=== PATIENT | female | born 1935 | race Caucasian/White ===

== ENCOUNTER 2020-05-06 06:34 | Day surgery (SDC) | payer OTHER ==
[2020-05-06] MEDS ORDERED: NA CHLORIDE 0.9% 1,000 ML ONE (07:07)
[2020-05-06] MEDS: LIDOCAINE 1% W/EPI 1:100,000 MDV 20 ML VIAL ONE ×2 (07:17→08:05)
[2020-05-06] MEDS ORDERED: Ringers Lactate 1,000 ML IV ONE (07:25)
[2020-05-06] MEDS ORDERED: LIDOCAINE 2% MPF 5 ML VIAL ONE (07:43)
[2020-05-06] MEDS ORDERED: FENTANYL CITR 100 MCG/2 ML ONE (07:43)
[2020-05-06] MEDS ORDERED: propofoL 200 MG/20 ML VIAL IV ONE (07:43)
[2020-05-06 08:58] VITALS: BP 120/51; TEMP 97.9; O2SAT 93
--- NOTE | 2020-05-07 04:35 | OP ---
Date of Procedure: 05/06/2020 Surgeon: mEily Cowan MD Preoperative Diagnosis: Postmenopausal bleeding. Postoperative Diagnosis: Postmenopausal bleeding. Procedures Performed: Hysteroscopy, dilation and curettage. Anesthesia: MAC plus paracervical block. Specimens: Endometrial curettings. Complications: No complications. Drains: No drains. Condition: Stable. Indication For Procedure: 84-year-old lady with postmenopausal bleeding. Transvaginal ultrasound wa s done. The lining thickness was 6 mm. Needed endometrial sampling to rule out pathology. She was then consented and taken to the hospital. Although no cardiac clearance was done, patient was comple tely asymptomatic and after discussion with Anesthesia, decided to proceed with MAC and not a general with a local block and so we were able to proceed without any further investigations. Description Of Procedure: After informed consent was verified, she was taken back to OR, placed in s upine fashion on the operating table. MAC was given, placed in a dorsal lithotomy position. Pelvic exam performed. Prepped with Betadine x3. Speculum placed in the vagina to expose the cervix. Ante rior lip injected with 1% lidocaine mixed with 1:100,000 epinephrine, 5 cc was given. Anterior lip g rasped with an Allis clamp. Small polypoid area on the external os was seen. Injection at 4 and 8 o 'clock positions with another 6 cc of the same solution was given with a needle. Then, SlimLine diag nostic hysteroscope was used to enter the cervical canal and traverse through it into the uterine cav ity under direct vision. Slight distortion in the canal, but I was able to follow it into the uterin e cavity without any problems. 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 Endometrial t issue was floating around in the hysteroscopic fluid. Endometrium appeared to be slightly thickened, but no gross tumor was seen. Both tubal ostia were well visualized. Scope was removed. Endometria l curettings were performed after dilating to a 14-Hungarian with a 0 curette. After adequate sampling was performed, this was handed off for permanent pathology. Instruments were removed. Instrument, n eedle, and sponge counts were correct at the end of the case. The patient was recovered from anesthe francois and taken to the PACU in a stable condition. EBL was minimal. No complications were noted and s he has recovered well without any problems. She will see us back in 1 week. JOON Voice ID: [id number] Report ID: [id number]
== END 2020-05-06 09:25 | disposition home or self-care (01) ==
LOC: OR 06:34
PROVIDERS: ATTEND Obstetrics & Gynecology
PROC: 0UJD8ZZ Inspection of Uterus and Cervix, Via Natural or Artificial Opening Endoscopic (ICD-10-PCS; 2020-05-06)
PROC: 0UDB7ZX Extraction of Endometrium, Via Natural or Artificial Opening, Diagnostic (ICD-10-PCS; principal; 2020-05-06 07:30)
DX: N85.02 Endometrial intraepithelial neoplasia [EIN] (principal); N84.0 Polyp of corpus uteri; N95.2 Postmenopausal atrophic vaginitis; I12.9 Hypertensive chronic kidney disease with stage 1 through stage 4 chronic kidney disease, or unspecified chronic kidney disease; N18.9 Chronic kidney disease, unspecified; E78.00 Pure hypercholesterolemia, unspecified; E66.01 Morbid (severe) obesity due to excess calories; Z68.38 Body mass index [BMI] 38.0-38.9, adult; Z85.3 Personal history of malignant neoplasm of breast; Z80.9 Family history of malignant neoplasm, unspecified; Z82.49 Family history of ischemic heart disease and other diseases of the circulatory system
CPT/HCPCS: 58558; 88305; J2704; J3010; J7120; J7030

== ENCOUNTER 2023-07-13 09:00 | Day surgery (SDC) | payer OTHER ==
--- NOTE | 2023-07-05 11:32 | RAD REPORT ---
EXAM DESCRIPTION: RAD - Chest Pa And Lat (2 Views) - 07/05/2023 11:15 am CLINICAL HISTORY: pre op. Hypertension COMPARISON: CHEST SINGLE VIEW dated 07/22/2012; CHEST PA AND LAT 2 VIEW dated 09/28/2005; CHEST PA AND LAT 2 VIEW dated 09/28/2005 TECHNIQUE: PA and lateral views of the chest were obtained. FINDINGS: The lungs are clear. Left basilar atelectatic changes and surgical clips near the left bas e are stable. Heart size is normal and central vasculature is within normal limits. No pleural effusi on or pneumothorax seen. No acute bony finding noted. IMPRESSION: No acute cardiopulmonary process.
[2023-07-05 11:46] LABS: Protime INR 1.17
[2023-07-05 11:52] LABS: Absolute Lymphocytes (CBC) 1.7 K/uL (0.7-4.9); Hematocrit 36.8 % (36.0-45.0); Lymphocytes % 22.5 % (15.3-44.8); MCV 87.5 fL (80-100); MPV 8.3 fL (7.6-11.3); Platelets 451 thou/uL (152-406)
--- NOTE | 2023-07-05 18:06 | EKG ---
Test Date: 2023-07-05 Test Time: 10:33:10 Linux Network Administrator: PETRA MEASUREMENT RESULTS: Intervals: Rate: 61 TX: 128 QRSD: 96 QT: 404 QTc: 406 [place]: P: TX: 128 QRS: -62 T: -56 INTERPRETIVE STATEMENTS: Normal sinus rhythm Left axis deviation Voltage criteria for left ventricular hypertrophy Inferior-posterior infarct, age undetermined Abnormal ECG Electronically Signed On 07-05-23 18:05:49 CDT by Calvin Yu
--- NOTE | 2023-07-06 14:13 | EKG ---
Test Date: 2023-07-05 Test Time: 10:34:30 Managing Consultant: PETRA MEASUREMENT RESULTS: Intervals: Rate: 60 VA: 48 QRSD: 96 QT: 404 QTc: 404 [place]: P: 45 VA: 48 QRS: -62 T: -51 INTERPRETIVE STATEMENTS: Sinus rhythm with short VA Left axis deviation Voltage criteria for left ventricular hypertrophy Inferior-posterior infarct, age undetermined Abnormal ECG Compared to ECG 07/05/2023 10:33:10 Short VA interval now present Electronically Signed On 07-06-23 14:11:15 CDT by Calvin Yu
[2023-07-13] MEDS ORDERED: VERAPAMIL HCL 10 MG/4 ML VIAL IV ONE (09:38)
[2023-07-13] MEDS ORDERED: CLOPIDOGREL 75 MG TABLET ONE (09:38)
[2023-07-13] MEDS ORDERED: HEPARIN 5000 UNIT/ML 1 ML VIAL ONE (09:38)
[2023-07-13] MEDS ORDERED: ASPIRIN 325 MG TAB ONE (09:38)
[2023-07-13] MEDS ORDERED: HEPA 1000U/500MLS 2,000 UNIT/1,000 ML BAG IV ONE (09:38)
[2023-07-13] MEDS ORDERED: MIDAZOLAM HCL 2 MG/2 ML INJ ONE (09:38)
[2023-07-13] MEDS ORDERED: LIDOCAINE 1% 20 ML MDV ONE (09:39)
[2023-07-13] MEDS ORDERED: NITROGLYCERIN 100 MCG/ML SYR (for cath lab use only) IV ONE (09:39)
[2023-07-13] MEDS ORDERED: TICAGRELOR 90 MG TABLET PO ONE (09:39)
[2023-07-13] MEDS ORDERED: ATROPINE SULF 1 MG/10 ML SYR IV ONE (09:39)
[2023-07-13] MEDS ORDERED: HEPARIN 10,000 UNIT/10 ML VIAL IV ONE (09:39)
[2023-07-13] MEDS ORDERED: FENTANYL CITR 100 MCG/2 ML ONE (09:39)
[2023-07-13] MEDS ORDERED: NA CHLORIDE 0.9% 500 ML ONE (10:23)
[2023-07-13 10:38] VITALS: TEMP 97.8
--- NOTE | 2023-07-13 12:36 | OP ---
Date of Procedure: 07/13/2023 Surgeon: MARIA DE JESUS MOORE Procedures Performed: 1.Selective coronary angiogram. 2.Left heart catheterization. Indication: Chest pain with abnormal stress test showing significant inferior ischemia. Access: Right radial artery 6-Stateless closed with TR band. Complications: None. Bleeding: Less than 20 mL. Anesthesia: Total sedation time was 20 minutes. Used Versed and fentanyl. Description Of Procedure: After risks, benefits, alternatives were explained, the patient agreed to the procedure and signed informed consent. Patient was brought into the cardiac catheterization [facility], prepped and draped in usual sterile fashion. Then, I accessed the right radial artery using pediatric micropuncture kit, placed 6-Stateless Slender sheath, took 5-Stateless [place] 4 catheter into the aortic root, engaged the left main, took standard views and then the RCA, took standard views and the catheter was pushed over the wire into the LV, measured the LVEDP and pullback did not record any gr adient. Then I removed the catheter and the sheath and placed TR band with good hemostasis. Findings: 1.Left main is normal. 2.LAD, normal with large size vessel with luminal irregularities, normal diagonal branches. 3.Left circumflex; proximal luminal irregularities and mid 30% stenosis. OM branch is normal. 4.RCA, it is large and dominant with a diffuse 10% to 20% stenosis. 5.Elevated LVEDP at between 10 and 12 mmHg, slightly elevated. Conclusion: Mild nonobstructive coronary artery disease. Plan: Medical management. /SUE Voice ID: [id number] Report ID: [id number]
[2023-07-13 14:00] VITALS: BP 159/62; O2SAT 96
== END 2023-07-13 13:30 | disposition home or self-care (01) ==
LOC: CCL 09:00
PROVIDERS: ATTEND Internal Medicine
DX: I25.10 Atherosclerotic heart disease of native coronary artery without angina pectoris (principal); I10 Essential (primary) hypertension; E78.5 Hyperlipidemia, unspecified; Z79.82 Long term (current) use of aspirin; Z79.899 Other long term (current) drug therapy
CPT/HCPCS: 36415; 71046; 76937; 80048; 85025; 85610; 85730; 93005; 93458; C1893; J0461; J1644; J2001; J2250; J3010; J7040; Q9966

== ENCOUNTER 2024-10-17 07:45 | Emergency (ER) | payer OTHER ==
--- OUTSIDE RECORDS SUMMARY | 2024-10-17 07:48 | XMS REPORT | Continuity of Care Document ---
Author Name Unknown Address [address] [facility] [address] [facility] [address] [place] [address] [facility] Address [address] [place] [address] Care Team Providers Care Cafe Attendant Name Role Phone Oj Earl Primary Care Physician [phone] SYSTEM, PROVIDER NOT IN Attending Clinician Unav DENISE Rivas Attending Clinician Unavaila MIKE Ruiz Attending Clinician UnavailHEATHER Campos Attending Clinician Unavaila MIAN Landa Attending Clinician Unavailable MINNIE SHABAZZ Attending Clinician Unavailable Ammy Dawson APRN Attending Clinician Catalino Jensen MD Attending Clinician [phone] VENECIA AYALA Attending Clinician Unavailable [email or web address]_S Attending Clinician UnavailVIRGEN Plascencia Attending Clinician Unavailable MEME WALLACE Attending Clinician Unavailable JAGDISH RASMUSSEN Attending Clinician Unavailable JEAN-PIERRE OROZCO Attending Clinician Unavailable [email or web address]_S Admitting Clinician UnavailVENECIA Damon Admitting Clinician Unavailable Payers Payer Name Policy Type Policy Number Effective Date Expirati on Date Source MEDICARE PART A AND B [id number] 2002 00:00:00 [facility] [id number] 2015 00:00:00 2016 00:00:00 MEDICARE PART A AND B [id number] 2002 00:00:00 Problems Condition Name Condition Details Condition Category Status Onset Date Resolution Date Last Treatment Date Treating Clinician Comments Source Status post right knee replacemen t Status post right knee replacemen t Disease Active 9-22 00:00: 00 [facility] Aftercare following right knee joint replacemen t surgery Aftercare following right knee joint replacemen t surgery Disease Active 4-08 00:00: 00 Last Assessmen t & Plan: Formattin g of this note might be different from the original. Continue PT for strengthe maral and balance. [facility] Osteoarthr itis Osteoarthr itis Disease Active 2-02 00:00: 00 [facility] Bilateral leg edema Bilateral leg edema Disease Active 2-02 00:00: 00 [facility] Primary osteoarthr itis of right knee Primary osteoarthr itis of right knee Disease Active 1-03 00:00: 00 Last Assessmen t & Plan: Formattin g of this note might be different from the original. Discussed with Ms. Meyers stacie chiu treatment options for osteoarth ritis. Treatment included pain medicatio n (NSAID's and topicals) , bracing, physical therapy, cortisone injection s, hyaluroni c acid, PRP, and stem cells.Enoch edwardsy risks, benefits, and alternati ves were discussed with the patient regarding operative intervent ion. Risks include but are not limited to pain, bleeding, scarring, infection , damage to nerves, arteries, veins, failure of procedure , possible loosening , migration , or hardware failure, possible choice of implants (Ellenburg, Simmons [employer]hew), possible painful or prominent hardware, joint stiffness , need for further procedure s, nonunion, malunion, dislocati on, loss of limb, heart attack, stroke and . Patient voiced understan ding and wished to proceed with operative intervent ions.Righ t TKA [facility] Malignant neoplasm of endometriu m Malignant neoplasm of endometriu m Disease Active 30 00:00: 00 [facility] Hyperlipid emia Hyperlipid emia Disease Active 05-25 00:00: 00 [facility] Hypertensi on Hypertensi on Disease Active 05-25 00:00: 00 [facility] Infiltrati ng ductal carcinoma of breast Infiltrati ng ductal carcinoma of breast Disease Active 5-15 00:00: 00 [facility] Social History Social Habit Start Date Stop Date Quantity Comments Source Sexual orientation [facility] Alcoholic beverage intake 2024-08-14 00:00:00 2024-08-14 00:00:00 Ex-drinker (finding) [facility] History of Social function 2024-05-15 00:00:00 2024-05-15 00:00:00 [facility] Tobacco use and exposure 2023-11-29 00:00:00 2023-11-29 00:00:00 Smokeless tobacco non-user [facility] Sex assigned at 1935 00:00:00 1935 00:00:00 [facility] Smoking Status Start Date Stop Date Source Never smoked tobacco [facility] Medications Ordered Medication Name Filled Medication Name Start Date Stop Date Current Medication? Ordering Clinician Indication Dosage Frequency Signature (SIG) Comments Components Source HYDROcodone -acetaminop hen ([place]) 7.5-325 MG tablet 02-21 00:00: 00 Yes [id number] 1{tbl} Take 1 tablet by mouth every 4 (four) hours if needed for severe pain. [facility] celecoxib (CeleBREX) 100 MG capsule 02-21 00:00: 00 03-24 04:59 :00 No [id number] 9100 100mg QD Take 1 capsule (100 mg total) by mouth 1 (one) time each day. [facility] gabapentin (Neurontin) 300 MG capsule 02-21 00:00: 00 03-24 04:59 :00 No [id number] 9100 300mg Take 1 capsule (300 mg total) by mouth every night. [facility] atorvastati n (Lipitor) 20 MG tablet 02-19 13:28: 22 Yes 20mg Take 20 mg by mouth. [facility] aspirin 81 MG EC tablet 02-19 13:28: 22 Yes 81mg Take 81 mg by mouth. [facility] Diclofenac Sodium (Voltaren) 1 % external gel 02-19 13:28: 22 Yes 1g Q.5D Apply 1 g topically in the morning and 1 g in the evening. [facility] [id number]-O julieth 3-Phytoster ols (BP VIT 3 PO) 02-19 13:28: 22 Yes Take by mouth. [facility] losartan-hy droCHLOROth iazide (Hyzaar) 100-25 MG tablet 02-19 13:28: 22 Yes 1{tbl} QD Take 1 tablet by mouth 1 (one) time each day. [facility] carvedilol (Coreg) 25 MG tablet 02-19 13:28: 22 Yes 25mg Take 25 mg by mouth in the morning and 25 mg in the evening. Take with meals. [facility] Ascorbic Acid (vitamin C) 1000 MG tablet 02-19 13:28: 22 Yes 1000mg QD Take 1,000 mg by mouth 1 (one) time each day. [facility] celecoxib (CeleBREX) 200 MG capsule 02-19 00:00: 00 Yes [id number] TAKE BID THE DAY BEFORE SX, AND 1 THE AM OF SX [facility] Ascorbic Acid (vitamin C) 1000 MG tablet 01-16 13:11: 51 Yes 1000mg QD Take 1,000 mg by mouth 1 (one) time each day. [facility] atorvastati n (Lipitor) 20 MG tablet 01-16 13:11: 51 Yes 20mg Take 20 mg by mouth. [facility] aspirin 81 MG EC tablet 01-16 13:11: 51 Yes 81mg Take 81 mg by mouth. [facility] Diclofenac Sodium (Voltaren) 1 % external gel 01-16 13:11: 51 Yes 1g Q.5D Apply 1 g topically in the morning and 1 g in the evening. [facility] Multiple Vitamins-Mi nerals (ICAPS AREDS 2 PO) 01-16 13:11: 51 Yes Take by mouth. [facility] losartan-hy droCHLOROth iazide (Hyzaar) 100-25 MG tablet 01-16 13:11: 51 Yes 1{tbl} QD Take 1 tablet by mouth 1 (one) time each day. [facility] carvedilol (Coreg) 25 MG tablet 01-16 13:11: 51 Yes 25mg Take 25 mg by mouth in the morning and 25 mg in the evening. Take with meals. [facility] atorvastati n (Lipitor) 20 MG tablet 12-29 17:49: 16 Yes 20mg Take 20 mg by mouth. [facility] aspirin 81 MG EC tablet 12-29 17:49: 16 Yes 81mg Take 81 mg by mouth. [facility] Vital Signs Vital Name Observation Time Observation Value Comments S ource Body height 2024-08-14 17:08:00 152.4 cm [facility] Body weight 2024-08-14 17:08:00 81.647 kg [facility] BMI 2024-08-14 17:08:00 35.15 kg/m2 [facility] Body height 2024-05-15 15:57:00 152.4 cm [facility] Body weight 2024-05-15 15:57:00 83.915 kg [facility] BMI 2024-05-15 15:57:00 36.13 kg/m2 [facility] Body height 2024-04-09 13:43:00 152.4 cm [facility] Body weight 2024-04-09 13:43:00 85.73 kg [facility] BMI 2024-04-09 13:43:00 36.91 kg/m2 [facility] Body weight 2024-03-15 14:59:00 85.73 kg [facility] BMI 2024-03-15 14:59:00 36.91 kg/m2 [facility] Body height 2024-03-15 14:59:00 152.4 cm [facility] Body height 2024-02-20 18:28:00 152.4 cm [facility] Body weight 2024-02-20 18:28:00 85.73 kg [facility] BMI 2024-02-20 18:28:00 36.91 kg/m2 [facility] Body height 2024-01-16 19:04:00 152.4 cm [facility] Body weight 2024-01-16 19:04:00 86.183 kg [facility] BMI 2024-01-16 19:04:00 37.11 kg/m2 [facility] Body height 2023-11-29 16:09:00 152.4 cm [facility] Body weight 2023-11-29 16:09:00 86.183 [facility] BMI 2023-11-29 16:09:00 37.11 kg/m2 [facility] WEIGHT 2020-06-08 09:21:00 86 kg Encounters Start Date/Time End Date/Time Encounter Type Admission Type Attending [facility] Facility Care Department Encounter ID Source 2023-06-29 09:17:51 Outpatient SYSTEM, PROVIDER MDA MDA [id number] MD Kaleigh hanson 2023-05-06 16:04:57 Outpatient SYSTEM, PROVIDER MDA MDA [id number] MD Kaleigh hanson 2020-06-15 15:04:43 Outpatient SYSTEM, PROVIDER MDA MDA [id number] MD Kaleigh hanson 2020-06-09 12:06:00 Outpatient MDA MDA [id number] MD Kaleigh hanson 2020-06-09 07:12:09 Outpatient OJELADENISE CHAVEZ MDA MDA [id number] MD Kaleigh hanson 2020-06-09 07:12:09 Outpatient ODENISE HILL MDA MDA [id number] MD Kaleigh hanson 2020-06-08 10:33:45 Outpatient MIKE PETER MDA MDA [id number] MD Kaleigh hanson 2020-06-05 10:55:31 Outpatient MDA MDA [id number] MD Kaleigh hanson 2020-05-22 11:50:50 Outpatient SYSTEM, PROVIDER MDA MDA [id number] MD Kaleigh hanson 2025-02-11 11:15:00 2025-02-11 11:15:00 Outpatient HEATHER ALANIZ [facility] [id number] [facility] 2024-08-14 11:15:00 2024-08-14 12:59:46 Outpatient [facility] [id number] [facility] 2024-08-14 11:15:00 2024-08-14 12:59:30 Office Visit Heather Alaniz [facility] [id number] [id number] [facility] 2024-05-15 13:00:00 2024-05-15 13:00:00 Outpatient HEATHER ALANIZ [facility] [id number] [facility] 2024-05-15 11:00:00 2024-05-15 11:56:29 Outpatient [facility] [id number] [facility] 2024-05-15 11:00:00 2024-05-15 11:56:23 Office Visit [facility] [id number] [id number] [id number] [facility] 2024-05-13 08:12:44 2024-05-13 09:07:40 Outpatient MIAN KERR MDA MDA [id number] MD Kaleigh hanson 2024-04-10 11:00:00 2024-04-10 11:00:00 Outpatient HEATHER ALANIZ [facility] [id number] [facility] 2024-04-09 11:00:00 2024-04-09 12:22:01 Outpatient [facility] [id number] [facility] 2024-04-09 11:00:00 2024-04-09 12:21:53 Office Visit Heather Alaniz [facility] [id number] [id number] [id number] [id number] [facility] 2024-04-01 11:02:03 2024-04-01 12:44:52 Outpatient SCOTT SHABAZZ SAIRA SILVER MDA [id number] MD Kaleigh hanson 2024-03-15 10:00:00 2024-03-15 10:40:53 Outpatient [facility] [id number] [facility] 2024-03-15 10:00:00 2024-03-15 10:40:44 Office Visit Ammy Dawson [facility] [id number] 350.1.13.58 9.2.7.2.686 [id number] [facility] 2024-03-15 10:15:00 2024-03-15 10:15:00 Outpatient AMMY DAWSON [facility] [id number] [facility] 2024-03-04 14:45:00 2024-03-04 14:45:00 Outpatient AMMY DAWSON [facility] [id number] [facility] 2024-03-04 14:30:00 2024-03-04 14:45:00 Telemedici ne Ammy Dawson [facility] [id number] 350.1.13.58 9.2.7.2.686 [id number] [facility] 2024-02-22 11:00:00 2024-02-22 11:00:00 Outpatient HEATHER ALANIZ [facility] [id number] [facility] 2024-02-22 08:00:00 2024-02-22 08:00:00 Outpatient HEATHER ALANIZ [facility] [id number] [facility] 2024-02-20 13:30:00 2024-02-20 14:06:24 Office Visit Heather Alaniz [facility] 1.2.840.114 350.1.13.58 9.2.7.2.686 [id number] [facility] 2024-01-16 13:00:00 2024-01-16 14:03:36 Office Visit Heather Alaniz [facility] 1.2.840.114 350.1.13.58 9.2.7.2.686 [id number] [facility] 2023-12-29 10:30:00 2023-12-29 11:53:01 Office Visit Catalino Jensen [facility] 1.2.840.114 350.1.13.58 9.2.7.2.686 [id number] [facility] 2023-11-29 10:00:00 2023-11-29 11:28:34 Outpatient [facility] [id number] [facility] 2023-11-29 10:00:00 2023-11-29 11:28:23 Office Visit mAmy Dawson [facility] 1.2.840.114 350.1.13.58 9.2.7.2.686 [id number] [facility] 2023-11-13 10:58:28 2023-11-13 11:58:40 Outpatient VENECIA COVARRUBIAS MDA MDA [id number] MD Kaleigh hanson 2023-09-26 00:00:00 2023-09-26 00:00:00 Outpatient GC_GCBZW_Ka diyala_S [facility] [id number] [facility] 2023-05-15 10:06:01 2023-05-15 11:10:43 Outpatient VENECIA COVARRUBIAS MDA MDA [id number] MD Kaleigh hanson 2023-03-30 11:10:03 2023-03-30 12:03:36 Outpatient MINNIE GARCIA MDA MDA [id number] MD Kaleigh hanson 2022-11-14 13:27:24 2022-11-14 13:27:24 Outpatient VENECIA COVARRUBIAS MDA MDA [id number] MD Kaleigh hanson 2022-11-14 10:14:28 2022-11-14 10:14:28 Outpatient ROBERT ROSENTHALNA MDA MDA [id number] MD Kaleigh hanson 2022-07-25 09:21:51 2022-07-25 10:43:31 Outpatient VENECIA COVARRUBIAS MDA MDA [id number] MD Kaleigh hanson 2022-03-21 09:35:48 2022-03-21 10:07:11 Outpatient VENECIA COVARRUBIAS MDA MDA [id number] MD Kaleigh hanson 2022-03-07 09:01:51 2022-03-07 09:01:51 Outpatient VENECIA COVARRUBIAS MDA MDA [id number] MD Kaleigh hanson 2021-11-08 08:48:15 2021-11-08 08:48:15 Outpatient VENECIA COVARRUBIAS MDA MDA [id number] MD Kaleigh hanson 2021-07-12 08:29:33 2021-07-12 08:29:33 Outpatient VENECIA COVARRUBIAS MDA MDA [id number] MD Kaleigh hanson 2021-07-09 07:48:37 2021-07-09 07:48:37 Outpatient MEME MAZARIEGOS MDA MDA [id number] MD Kaleigh hanson 2020-07-13 00:00:00 2020-07-13 00:00:00 Outpatient VENECIA COVARRUBIAS MDA MDA [id number] MD Kaleigh hanson 2020-07-13 00:00:00 2020-07-13 00:00:00 Outpatient JAGDISH BRAGA MDA MDA [id number] MD Kaleigh hanson 2020-06-22 11:27:31 2020-06-22 11:27:31 Outpatient VENECIA COVARRUBIAS MDA MDA [id number] MD Kaleigh hanson 2020-06-09 05:03:00 2020-06-09 18:25:00 Outpatient VENECIA COVARRUBIAS MDA Gynecology [id number] MD Kaleigh hanson 2020-06-08 08:18:09 2020-06-08 23:59:00 Outpatient EL VIRGEN VILLAR MDA MDA [id number] MD Kaleigh hanson 2020-06-08 12:55:18 2020-06-08 12:55:18 Outpatient VENECIA COVARRUBIAS MDA MDA [id number] MD Kaleigh hanson 2020-06-08 08:55:03 2020-06-08 10:23:45 Outpatient VENECIA COVARRUBIAS MDA MDA [id number] MD Kaleigh hanson 2020-06-08 07:28:28 2020-06-08 08:17:00 Outpatient EL ROBERT VILLARNA MDA MDA [id number] MD Kaleigh hanson 2020-06-08 00:00:00 2020-06-08 00:00:00 Outpatient EL JIAN VIRGEN MDA MDA [id number] MD Kaleigh hanson 2020-06-08 00:00:00 2020-06-08 00:00:00 Outpatient VENECIA COVARRUBIAS MDA MDA [id number] MD Kaleigh hanson 2020-06-07 11:01:00 2020-06-07 11:01:00 Outpatient EL UNVANDANA VIRGEN MDA MDA [id number] MD Kaleigh hanson 2020-06-01 10:01:36 2020-06-01 10:01:36 Outpatient EL UNVANDANA VIRGEN MDA MDA [id number] MD Kaleigh hanson 2020-05-26 07:51:05 2020-05-26 07:51:05 Outpatient EL UNVANDANA VIRGEN MDA MDA [id number] MD Kaleigh hanson 2020-05-25 10:06:52 2020-05-25 10:17:26 Outpatient VIRGEN ROSENTHAL SILVER SHEPPARD [id number] MD Kaleigh hanson 2020-05-25 08:06:26 2020-05-25 08:06:26 Outpatient VENECIA COVARRUBIAS SILVER SHEPPARD [id number] MD Kaleigh hanson 2020-05-25 07:59:27 2020-05-25 07:59:35 Outpatient SCOTT LUCYCHULA YOUNGREBECA SHEPPARD MDA [id number] MD Kaleigh hanson 2020-05-22 10:04:59 2020-05-22 10:04:59 Outpatient CHULA COVARRUBIASREBECA SHEPPARD MDA [id number] MD Kaleigh hanson 2020-05-21 16:01:00 2020-05-21 23:59:00 Outpatient JEAN-PIERRE LOPEZ SILVER SHEPPARD [id number] MD Kaleigh hanson Notes Date/Time Note Provider Source 2024-08-18 11:07:48 Associated Problem(s): Status post right knee replacement Discussed with Ms. Meyers about need for antibiotics before dental procedures, any signs of a skin infection, as well as any sign of a urinary tract infection or GI infection. she verbalized understanding. Continue with performing HEP and slowly increasing activity. [facility] 2024-05-15 11:49:18 Associated Problem(s): Aftercare following right knee joint replacement surgery Continue PT for strengthening and balance. [facility] 2024-04-09 12:18:28 Associated Problem(s): Aftercare following right knee joint replacement surgery Continue PT. [facility] 2024-03-17 16:59:02 Associated Problem(s): Aftercare following right knee joint replacement surgery The pola were removed. Incision was clean, dry and intact. Benzoin was applied and Steri-Strips were applied over the incision. Ms. Meyers was educated on signs of infection including increased pain, erythema, tenderness, and drainage. Ms. Meyers verbalized understanding and will notify us immediately if any of the symptoms are noticed. [facility] 2024-03-04 14:42:24 Associated Problem(s): Aftercare following right knee joint replacement surgery Patient will continue with physical therapy and follow-up in 2 weeks for x-ray, bandage removal, and possible staple removal. [facility] 2024-02-26 22:08:15 Associated Problem(s): Primary osteoarthritis of right knee Discussed with Ms. Meyers conservative treatment options for osteoarthritis. Treatment included pain medication (NSAID's and topicals), bracing, physical therapy, cortisone injections, hyaluronic acid, PRP, and stem cells. Surgery risks, benefits, and alternatives were discussed with the patient regarding operative intervention. Risks include but are not limited to pain, bleeding, scarring, infection, damage to nerves, arteries, veins, failure of procedure, possible loosening, migration, or hardware failure, possible choice of implants (Ellenburg, [employer]hew), possible painful or prominent hardware, joint stiffness, need for further procedures, nonunion, malunion, dislocation, loss of limb, heart attack, stroke and . Patient voiced understanding and wished to proceed with operative interventions. Right TKA [facility] 2024-01-21 19:57:21 Associated Problem(s): Primary osteoarthritis of right knee Discussed with Ms. Meyers conservative treatment options for osteoarthritis. Treatment included pain medication (NSAID's and topicals), bracing, physical therapy, cortisone injections, hyaluronic acid, PRP, and stem cells. She is debating whether the surgery might be too big of a surgery for her so she would like to try PT first. [employer] [facility] 2023-11-29 16:47:43 Associated Problem(s): Primary osteoarthritis of right knee Discussed with Ms. Meyers conservative treatment options for osteoarthritis. Treatment included pain medication (NSAID's and topicals), bracing, physical therapy, cortisone injections, hyaluronic acid, PRP, and stem cells. Patient is already done cortisone injections as well as BOWLES injections as well as physical therapy with another provider. Will go ahead and start the process to get her ready for total knee arthroplasty and have her follow-up with Dr. Avina in 6 weeks. [employer]ING CO[employer]IN[employer] [facility]
[2024-10-17 08:40] LABS: Absolute Eosinophils 0.4 K/uL (0-0.5); Absolute Lymphocytes (CBC) 2.3 K/uL (0.7-4.9); Absolute Neutrophil 5.6 K/uL (1.8-8.0); Basophils % 0.5 % (0-1.3); Eosinophils % 4.2 % (0-4.4); Hematocrit 36.6 % (36.0-45.0); Hemoglobin 12.2 g/dL (12.0-15.0); MCHC 33.3 g/dL (32.0-36.0); MCV 86.9 fL (80-100); MPV 8.5 fL (7.6-11.3); Monocytes % 10.3 % (3.3-12.3); Nucleated Red Blood Cells % 0.1 % (0-0); Platelets 814 thou/uL (152-406); RBC Red Blood Cell Count 4.22 M/uL (3.86-4.86); Red Cell Distribution Width 14.8 % (12.1-15.2)
[2024-10-17 08:53] LABS: Albumin 3.5 g/dL (3.4-5.0); Anion Gap 8.2 mEq/L (5.0-15.0); Bilirubin Direct 0.3 mg/dL (0-0.2); Bilirubin Indirect, Calculated 0.6 mg/dL (0.2-0.8); Bilirubin Total 0.9 mg/dL (0.2-1.0); Globulin 3.4 g/dL (2.3-3.5); Magnesium 2.5 mg/dL (1.6-2.4); Potassium 4.2 mEq/L (3.5-5.1); Protein, Total 6.9 g/dL (6.4-8.2); Troponin High Sensitivity 10.9 pg/mL (<58.9)
--- NOTE | 2024-10-17 08:55 | RAD REPORT ---
EXAM: CT Head Brain Wo Cont HISTORY: WEAKNESS COMPARISON: None TECHNIQUE: Multiple contiguous axial images were obtained for a CT of the brain without contrast. Sag ittal and coronal reformats were performed. One or more of the following dose reduction techniques were used: Automated exposure control, adjus tment of the mA and kV according to patient size, and iterative reconstruction. Unless otherwise specified, incidental findings do not require dedicated imaging follow-up. FINDINGS: No evidence of hydrocephalus, intracranial hemorrhage, or extra-axial fluid collection. Mild brain atrophy with mild periventricular and deep white matter chronic microvascular ischemic ch anges present. The calvarium is intact. The visualized paranasal sinuses and mastoid air cells are essentially clear . Asymmetric engorgement of the right superior ophthalmic vein. IMPRESSION: No evidence of acute intracranial abnormality. Mild burden of nonspecific deep white matter hypodensities, most suggestive of chronic small vessel i schemic changes. Asymmetric engorgement of the right superior ophthalmic vein, of uncertain etiology. Please correlate for symptoms related to the right orbit. Possible etiologies could include a dural cavernous fistula, venous thrombosis, or sequelae of traumatic hemorrhage or infection.
--- NOTE | 2024-10-17 09:20 | RAD REPORT ---
EXAMINATION: ONE VIEW CHEST XR CLINICAL INDICATION: Female, 89 years old.,weakness TECHNIQUE: Frontal chest projection is submitted. Examination is limited by patient positioning and t echnique. COMPARISON: 01/31/2024 FINDINGS: The lungs are well inflated and clear. No pneumothorax or sizable effusion. The heart is normal in s ize. Mediastinal contours are unremarkable. IMPRESSION: No acute intrathoracic abnormalities.
[2024-10-17 10:17] LABS: Specific Gravity 1.007 (1.005-1.030); Sqamous Epithelial <5 /HPF (None Seen); Urine Bacteria None Seen /HPF (<20); Urine Bilirubin NEGATIVE (Negative); Urine Blood Negative (Negative); Urine Clarity Turbid (Clear); Urine Color Colorless (Yellow); Urine Culture Reflex Order NOT NEEDED; Urine Glucose NEGATIVE (Negative); Urine Ketones NEGATIVE (Negative); Urine Micro Reflex YN NO BILL MICROSCOPIC; Urine Nitrite NEGATIVE (Negative); Urine Protein NEGATIVE (Negative); Urine RBC None Seen /HPF (None Seen); Urine Urobilinogen Normal (Normal); Urine WBC <5 /HPF (<5); Urine pH 5.5 (5.0-7.0)
--- NOTE | 2024-10-17 11:25 | RAD REPORT ---
EXAMINATION: CTV HEAD CLINICAL INDICATION: Female, [address] V[address]. Abnormality on CT brain TECHNIQUE: Axial CT images were obtained through the head after intravenous contrast utilizing venogr aphic protocol with 3D post-processing (maximum intensity projection images, volume rendered images and/or shaded surface rendered images). One or more of the following dose reduction techniques were used: Automated exposure control, adjustment of the mA and/or kV according to patient size, and/or iterative reconstruction. Unless otherwise specified, incidental findings do not require dedicated im aging follow-up. COMPARISON: Noncontrast head CT of the same day FINDINGS: Superior sagittal sinus: Patent Transverse and sigmoid sinuses: Patent. Incidentally noted small arachnoid granulation along the righ t transverse sinus. Straight sinus, inferior sagittal sinus, and paired internal cerebral veins: Patent Cavernous sinuses: Normal appearing early opacification, without asymmetric distention or suspicious lesions. Asymmetric distention of the right superior ophthalmic vein. The vein opacifies normally with some la minar flow laterally, but no evidence of thrombosis. No evidence of a suspicious mass at the orbital apex. 3D images confirm these findings. The visualized proximal ham[place] of Gomes vessels show no abnormality apart from mild atherosclerotic calcific plaque at the carotid siphons bilaterally, within limits of venographic technique. IMPRESSION: Essentially normal CT venogram of the head. Asymmetric distention of the right superior ophthalmic vein as above, without evidence of thrombosis or a discrete orbital apex mass. The asymmetry is probably of low clinical significance, could relate to remote sequelae of infection or trauma.
--- NOTE | 2024-10-17 11:33 | EDPHYS ---
Physician Documentation [facility] Name: Christine Meyers Age: 89 yrs Sex: Female : 1935 Arrival Date: 10/17/2024 Time: 07:45 Bed 4 Private MD: ED Physician Amandeep Chang HPI: 10/17 08:22 This 89 yrs old Female presents to ER via Ambulatory with complaints of weakness. rt 08:22 Patient presents to the ED with generalized weakness. Patient states that she felt a rt tightness throughout the entirety of her face but not on any other parts of the body starting about 30 minutes prior to arrival. Patient was well when she woke up this morning. Denies other acute complaints at this time, symptoms are moderate in severity, no other aggravating or alleviating factors.. Historical: - Allergies: 07:54 No Known Allergies; ph - Home Meds: 08:17 atorvastatin 20 mg oral tablet 1 tab every day at bedtime [Active]; carvedilol 25 mg ph oral tablet 1 tab 2 times per day [Active]; losartan-hydrochlorothiazide 100-25 mg oral tablet 1 tab daily [Active]; aspirin 81 mg Oral tablet,chewable 1 tab daily [Active]; amlodipine 10 mg tablet 1 tab daily [Active]; hydralazine 25 mg Oral tablet 1 tab 1-3 times per day PRN [Active]; Vitamin D Oral 1,000 unit daily [Active]; Osteo Bi-Flex 250-200 mg oral tablet once [Active]; - PMHx: 07:54 Hypertensive disorder; Hypercholesterolemia; ph 08:17 Cancer- Breast (L); ph - PSHx: 08:17 Total abdominal hysterectomy; ph - Immunization history:: Adult Immunizations unknown. - Infectious Disease History:: Denies. - Social history:: Smoking status: Patient denies any tobacco usage or history of. - Family history:: not pertinent. ROS: 08:22 Constitutional: Negative for fever, chills, and weight loss, Cardiovascular: Negative rt for chest pain, palpitations, and edema, Respiratory: Negative for shortness of breath, cough, wheezing, and pleuritic chest pain, Abdomen/GI: Negative for abdominal pain, nausea, vomiting, diarrhea, and constipation, MS/Extremity: Negative for injury and deformity, Skin: Negative for injury, rash, and discoloration, 08:22 Neuro: Positive for weakness, Negative for dizziness, Exam: 08:22 Constitutional: This is a well developed, well nourished patient who is awake, alert, rt and in no acute distress. Head/Face: Normocephalic, atraumatic. Chest/axilla: Normal chest wall appearance and motion. Nontender with no deformity. No lesions are appreciated. Cardiovascular: Regular rate and rhythm with a normal S1 and S2. No gallops, murmurs, or rubs. Normal PMI, no JVD. No pulse deficits. Respiratory: Lungs have equal breath sounds bilaterally, clear to auscultation and percussion. No rales, rhonchi or wheezes noted. No increased work of breathing, no retractions or nasal flaring. Abdomen/GI: Soft, non-tender, with normal bowel sounds. No distension or tympany. No guarding or rebound. No evidence of tenderness throughout. Skin: Warm, dry with normal turgor. Normal color with no rashes, no lesions, and no evidence of cellulitis. MS/ Extremity: Pulses equal, no cyanosis. Neurovascular intact. Full, normal range of motion. Neuro: Awake and alert, GCS 15, oriented to person, place, time, and situation. Cranial nerves II-XII grossly intact. Motor strength 5/5 in all extremities. Sensory grossly intact. Cerebellar exam normal. Normal gait. 08:22 ECG was reviewed by the Attending Physician. Vital Signs: 07:52 BP 163 / 52; Pulse 57; Resp 18; Temp 97.8; Pulse Ox 100% on R/A; Weight 81.65 kg; ph Height 5 ft. 0 in. ; Pain 0/10; 08:13 BP 147 / 62; Pulse 61; Resp 18; Pulse Ox 100% on R/A; ph 09:15 BP 152 / 68; Pulse 64; Resp 18; Pulse Ox 98% on R/A; ph 10:30 BP 162 / 70; Pulse 62; Resp 18; Pulse Ox 99% on R/A; ph 10:30 BP 158 / 64; Pulse 60; Resp 18; Temp 97.5; Pulse Ox 100% on R/A; ph 07:52 Body Mass Index 35.15 (81.65 kg, 152.4 cm) ph 07:52 Pain Scale: Adult ph MDM: 07:47 Medical Screening Exam initiated rt 11:33 Differential Diagnosis Weakness, cavernous sinus thrombosis, electrolyte disturbance. rt Data reviewed: vital signs, nurses notes, lab test result(s), EKG, radiologic studies. Consideration of Admission/Observation Escalation of care including admission/observation considered. Symptoms improving throughout her stay in the emergency department, stable vital signs, labs unremarkable save for mildly elevated creatinine not any criteria for acute kidney injury. This was discussed with the patient. Workup did not reveal sinus fistula or cavernous sinus thrombosis. Comfortable with outpatient care, to return precautions discussed.. Discussion of test interpretation with radiology: I had a discussion with radiology regarding a test interpretation. Discussed findings with radiologist, states that CT venogram will be best rule out for cavernous sinus thrombosis.. Care significantly affected by the following chronic conditions: Hypertension. Counseling: I had a detailed discussion with the patient and/or guardian regarding the historical points, exam findings, and any diagnostic results supporting the discharge/admit diagnosis, lab results, radiology results, the need for outpatient follow up, to return to the emergency department if symptoms worsen or persist or if there are any questions or concerns that arise at home. Response to treatment: the patient's symptoms have markedly improved after treatment. 10/17 07:48 Order name: Basic Metabolic Panel; Complete Time: 08:55 rt 10/17 07:48 Order name: CBC with Diff; Complete Time: 08:49 rt 10/17 07:48 Order name: LFT's; Complete Time: 08:55 rt 10/17 07:48 Order name: Magnesium; Complete Time: 08:55 rt 10/17 07:48 Order name: Troponin HS; Complete Time: 08:55 rt 10/17 07:48 Order name: UAM; Complete Time: 10:20 rt 10/17 07:48 Order name: XRAY Chest (1 view); Complete Time: 09:22 rt 10/17 07:48 Order name: CT Head Brain wo Cont; Complete Time: 09:22 rt 10/17 10:05 Order name: CT Head Brain w Cont; Complete Time: 11:26 rt 10/17 07:48 Order name: EKG; Complete Time: 07:49 rt 10/17 07:48 Order name: Cardiac monitoring; Complete Time: 07:57 rt 10/17 07:48 Order name: EKG - Nurse/Tech; Complete Time: 07:57 rt 10/17 07:48 Order name: IV Saline Lock; Complete Time: 08:12 rt 10/17 07:48 Order name: Labs collected and sent; Complete Time: 08:13 rt 10/17 07:48 Order name: O2 Per Protocol; Complete Time: 07:58 rt 10/17 07:48 Order name: O2 Sat Monitoring; Complete Time: 07:57 rt EC:22 Rate is 58 beats/min. Rhythm is regular, Sinus bradycardia with No ectopy. Left axis rt deviation noted. NE interval is prolonged at 128 msec. QRS interval is normal. QT interval is normal. No Q waves. No ST changes noted. Interpreted by me. Administered Medications: No medications were administered Disposition Summary: 10/17/24 11:32 Discharge Ordered Notes: Location: Home rt Problem: new rt Symptoms: have improved rt Condition: Stable rt Diagnosis - Weakness rt Followup: rt - With: Private Physician - When: 2 - 3 days - Reason: Discharge Instructions: - Discharge Summary Sheet rt - Weakness rt Forms: - Medication Reconciliation Form rt - Antibiotic Education rt - Prescription Opioid Use rt - Patient Portal Instructions rt - Leadership Thank You Letter rt Signatures: Dispatcher [employer] Linda Winters RN RN ph Amandeep Chang MD MD rt Corrections: (The following items were deleted from the chart) 07:49 07:49 BASIC METABOLIC PANEL+C.LAB.BRZ ordered. EDMS EDMS 07:49 07:49 CBC+H.LAB.BRZ ordered. EDMS EDMS 07:49 07:49 HEPATIC FUNCTION+C.LAB.BRZ ordered. EDMS EDMS 07:49 07:49 MAGNESIUM+C.LAB.BRZ ordered. EDMS EDMS 07:49 07:49 Troponin High Sensitivity+C.LAB.BRZ ordered. EDMS EDMS 07:49 07:49 Urinalysis W/Microscopic+U.LAB.BRZ ordered. EDMS EDMS 07:49 07:49 Head Brain Wo Cont+CT.RAD.BRZ ordered. EDMS EDMS
--- NOTE | 2024-10-17 11:33 | ER ---
Nurse's Notes [facility] Name: Christine Meyers Age: 89 yrs Sex: Female : 1935 Arrival Date: 10/17/2024 Time: 07:45 Bed 4 Private MD: Diagnosis: Weakness Presentation: 10/17 07:52 Chief complaint: Patient states: Generalized weakness that started this morning, denies ph pain, numbness or tingling. Coronavirus screen: Vaccine status: Patient reports receiving the 2nd dose of the covid vaccine. Ebola Screen: No symptoms or risks identified at this time. Initial Sepsis Screen: Does the patient meet any 2 criteria? No. Patient's initial sepsis screen is negative. Initial Sepsis Screen: Does the patient have a suspected source of infection? No. Patient's initial sepsis screen is negative. Risk Assessment: Do you want to hurt yourself or someone else? Patient reports no desire to harm self or others. Onset of symptoms was October 17, 2024. 07:52 Method Of Arrival: Ambulatory ph 07:52 Acuity: ALVIN 3 ph Triage Assessment: 07:54 General: Appears in no apparent distress. comfortable, well groomed, Behavior is calm, ph cooperative, appropriate for age. Pain: Denies pain. Neuro: Level of Consciousness is awake, alert, obeys commands, Oriented to person, place, time, situation, Pharmacy Teacher are equal bilaterally Moves all extremities. Full function Speech is normal, Facial symmetry appears normal, Facial symmetry: tongue is midline, Pupils are PERRLA, Intact Reports weakness. Cardiovascular: Reports fatigue, lightheadedness. Respiratory: Airway is patent Respiratory effort is even, unlabored. GI: No signs and/or symptoms were reported involving the gastrointestinal system. Derm: Skin is pink, warm \T\ dry. Musculoskeletal: Circulation, motion, and sensation intact. Range of motion: intact in all extremities. Historical: - Allergies: 07:54 No Known Allergies; ph - Home Meds: 08:17 atorvastatin 20 mg oral tablet 1 tab every day at bedtime [Active]; carvedilol 25 mg ph oral tablet 1 tab 2 times per day [Active]; losartan-hydrochlorothiazide 100-25 mg oral tablet 1 tab daily [Active]; aspirin 81 mg Oral tablet,chewable 1 tab daily [Active]; amlodipine 10 mg tablet 1 tab daily [Active]; hydralazine 25 mg Oral tablet 1 tab 1-3 times per day PRN [Active]; Vitamin D Oral 1,000 unit daily [Active]; Osteo Bi-Flex 250-200 mg oral tablet once [Active]; - PMHx: 07:54 Hypertensive disorder; Hypercholesterolemia; ph 08:17 Cancer- Breast (L); ph - PSHx: 08:17 Total abdominal hysterectomy; ph - Immunization history:: Adult Immunizations unknown. - Infectious Disease History:: Denies. - Social history:: Smoking status: Patient denies any tobacco usage or history of. - Family history:: not pertinent. Screenin:56 [facility] ED Fall Risk Assessment (Adult) History of falling in the last 3 months, ph including since admission No falls in past 3 months (0 pts) Confusion or Disorientation No (0 pts) Intoxicated or Sedated No (0 pts) Impaired Gait No (0 pts) Mobility Assist Device Used No (0 pt) Altered Elimination No (0 pt) Score/Fall Risk Level 0 - 2 = Low Risk Oriented to surroundings, Maintained a safe environment, Hourly rounding (assess needs \T\ fall precautionary measures) done. Abuse screen: Denies threats or abuse. Denies injuries from another. Nutritional screening: No deficits noted. Tuberculosis screening: No symptoms or risk factors identified. Assessment: 07:57 General: SEE TRIAGE ASSESSMENT. ph 10:09 Reassessment: Patient appears in no apparent distress at this time. Patient and/or ph family updated on plan of care and expected duration. Pain level reassessed. Patient is alert, oriented x 3, equal unlabored respirations, skin warm/dry/pink. 11:53 Reassessment: Patient appears in no apparent distress at this time. Patient and/or ph family updated on plan of care and expected duration. Pain level reassessed. Patient is alert, oriented x 3, equal unlabored respirations, skin warm/dry/pink. Vital Signs: 07:52 BP 163 / 52; Pulse 57; Resp 18; Temp 97.8; Pulse Ox 100% on R/A; Weight 81.65 kg; ph Height 5 ft. 0 in. ; Pain 0/10; 08:13 BP 147 / 62; Pulse 61; Resp 18; Pulse Ox 100% on R/A; ph 09:15 BP 152 / 68; Pulse 64; Resp 18; Pulse Ox 98% on R/A; ph 10:30 BP 162 / 70; Pulse 62; Resp 18; Pulse Ox 99% on R/A; ph 10:30 BP 158 / 64; Pulse 60; Resp 18; Temp 97.5; Pulse Ox 100% on R/A; ph 07:52 Body Mass Index 35.15 (81.65 kg, 152.4 cm) ph 07:52 Pain Scale: Adult ph ED Course: 07:46 Patient arrived in ED. kb3 07:46 Amandeep Chang MD is Attending Physician. rt 07:52 Linda Allen, JOSIAH is Primary Nurse. ph 07:54 Triage completed. ph 07:56 Arm band placed on Patient placed in an exam room, on a stretcher, on court recording monitor, ph on pulse oximetry. 07:57 Patient has correct armband on for positive identification. Bed in low position. Call ph light in reach. Side rails up X 1. monitoring specialist on. Pulse ox on. NIBP on. Door closed. Noise minimized. Warm blanket given. 07:57 EKG done, by ED staff, reviewed by Amandeep Chang MD. ph 08:13 Troponin HS Sent. ph 08:13 Magnesium Sent. ph 08:13 LFT's Sent. ph 08:13 CBC with Diff Sent. ph 08:13 Basic Metabolic Panel Sent. ph 08:13 Initial lab(s) drawn, by nm, sent to lab. Inserted saline lock: 22 gauge in right ph antecubital area, using aseptic technique. Blood collected. Flushed with 10 mL NS. 08:23 XRAY Chest (1 view) In Process Unspecified. EDMS 08:29 CT Head Brain wo Cont In Process Unspecified. EDMS 10:10 No provider procedures requiring assistance completed. ph 10:10 UAM Sent. ph 10:10 Urine collected: clean catch specimen, clear. ph 10:41 Radiology exam delayed due to IV insertion attempt and/or patient not having jc4 appropriate IV at this time. 11:07 CT Head Brain w Cont In Process Unspecified. EDMS 11:52 IV discontinued, intact, bleeding controlled, No redness/swelling at site. Pressure ph dressing applied. Administered Medications: No medications were administered Medication: 07:57 VIS not applicable for this client. ph Outcome: 11:32 Discharge ordered by . rt 11:52 Discharged to home via wheelchair, with family, ph 11:52 Condition: good 11:52 Discharge instructions given to patient, Instructed on discharge instructions, follow up and referral plans. Demonstrated understanding of instructions, follow-up care, 11:53 Patient left the ED. ph Signatures: Dispatcher [employer] Linda Winters RN RN ph Bradberry, Kelly, RN RN kb3 Amandeep Chang MD MD rt Crisp, Justin [email or web address]
[2024-10-17 13:32] VITALS: BP 158/64; TEMP 97.5; O2SAT 100
--- NOTE | 2024-10-21 12:10 | EKG ---
Test Date: 2024-10-17 Test Time: 07:44:58 Retort Unloader: PH MEASUREMENT RESULTS: Intervals: Rate: 58 WY: 230 QRSD: 128 QT: 428 QTc: 420 [place]: P: 22 WY: 230 QRS: -54 T: 95 INTERPRETIVE STATEMENTS: Sinus bradycardia with 1st degree AV block Left axis deviation Left ventricular hypertrophy with QRS widening and repolarization abnormality Cannot rule out Septal infarct, age undetermined Possible Lateral infarct, age undetermined Abnormal ECG Compared to ECG 07/05/2023 10:34:30 First degree AV block now present Early repolarization now present Sinus rhythm no longer present Short [place] interval no longer present Myocardial infarct finding still present Electronically Signed On 10-21-24 12:04:09 BRICK UNLOADER TENDER by Miguel A Gay
== END 2024-10-17 11:53 | disposition home or self-care (01) ==
LOC: ER 07:45
DX: R53.1 Weakness (principal); I10 Essential (primary) hypertension; E78.00 Pure hypercholesterolemia, unspecified; Z79.82 Long term (current) use of aspirin
CPT/HCPCS: 85025; 81001; 80048; 36415; 83735; 80076; 84484; 70460; 70450; 71045; 99284; Q9967; 93005